=== PATIENT | female | born 1995 | race Two or more races ===

== ENCOUNTER 2023-06-05 05:10 | Inpatient (IN) | payer OTHER ==
[~2023-06-05] VITALS: Ht 149.9 cm; Wt 3.6 kg
[2023-06-05] MEDS ORDERED: PRENATAL TABLE1 EAC1 PO (05:38)
== END 2023-06-10 19:07 | disposition home or self-care (01) | DRG 787 ==
LOC: LDR 05:10 → OB/GYN 20:16
PROVIDERS: ADMIT Obstetrics & Gynecology; ATTEND Obstetrics & Gynecology
PROC: 4A1HXCZ Monitoring of Products of Conception, Cardiac Rate, External Approach (ICD-10-PCS; 2023-06-05)
PROC: 10D00Z1 Extraction of Products of Conception, Low, Open Approach (ICD-10-PCS; principal; 2023-06-05 15:00)
DX: O62.0 Primary inadequate contractions (principal); L03.115 Cellulitis of right lower limb; Z3A.39 39 weeks gestation of pregnancy; Z37.0 Single live birth; Z20.822 Contact with and (suspected) exposure to COVID-19; O75.89 Other specified complications of labor and delivery